=== PATIENT | female | born 1990 | race Caucasian/White ===

== ENCOUNTER 2017-01-13 16:39 | Emergency (ER) | payer SELFPAY ==
[~2017-01-13] VITALS: Ht 172.7 cm; Wt 66.2 kg
[2017-01-13 16:50] VITALS: BP 91/54
--- NOTE | 2017-01-13 19:10 | NUR ---
PATIENT LEFT WITHOUT BEING SEEN BY DR. SOLIS. NO FURTHER CARE PROVIDED FOR PATIENT.
== END 2017-01-13 19:10 | disposition left against medical advice (07) ==
LOC: MED 16:39
DX: O21.9 Vomiting of pregnancy, unspecified (principal); Z53.21 Procedure and treatment not carried out due to patient leaving prior to being seen by health care provider; Z3A.00 Weeks of gestation of pregnancy not specified